=== PATIENT | female | born 1985 | race American Indian/Alaskan Native ===

== ENCOUNTER 2019-01-08 12:10 | Emergency (ER) | payer OTHER ==
[2019-01-08 13:22] VITALS: BP 112/72
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
== END 2019-01-08 15:04 | disposition home or self-care (01) ==
LOC: ED 12:10
DX: M62.838 Other muscle spasm (principal); M25.512 Pain in left shoulder; V89.2XXA Person injured in unspecified motor-vehicle accident, traffic, initial encounter; Y93.89 Activity, other specified; Y92.89 Other specified places as the place of occurrence of the external cause; Y99.8 Other external cause status
CPT/HCPCS: 99283

== ENCOUNTER 2019-02-25 17:28 | Emergency (ER) | payer OTHER ==
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
[2019-02-25 20:48] VITALS: BP 117/67
== END 2019-02-25 20:48 | disposition home or self-care (01) ==
LOC: ED 17:28
DX: S29.012A Strain of muscle and tendon of back wall of thorax, initial encounter (principal); S13.4XXA Sprain of ligaments of cervical spine, initial encounter; Z79.899 Other long term (current) drug therapy; V89.2XXA Person injured in unspecified motor-vehicle accident, traffic, initial encounter; Y93.89 Activity, other specified; Y92.488 Other paved roadways as the place of occurrence of the external cause; Y99.8 Other external cause status
CPT/HCPCS: 72040; 72072; 99283

== ENCOUNTER 2020-05-01 01:55 | Emergency (ER) | payer SELFPAY ==
[2020-05-01 02:14] VITALS: BP 143/99
[2020-05-01 03:28] LABS: HCG Qualitative,Urine Negative (Negative)
[2020-05-01 03:36] LABS: Amphetamine Screen,Urine PRESUMPTIVE NEGATIVE; Benzodiazepines Screen,Urine PRESUMPTIVE NEGATIVE; Cannabinoid Screen,Urine PRESUMPTIVE POSITIVE; Cocaine Screen,Urine PRESUMPTIVE NEGATIVE; Methadone Screen,Urine PRESUMPTIVE NEGATIVE; Opiate Screen,Urine PRESUMPTIVE NEGATIVE
--- NOTE | 2020-05-01 03:54 | Emergency Department Report ---
<ZABRINA ESPINO - Last Filed: 05/01/20 03:50> ED General Adult HPI - General Chief complaint: Overdose Stated complaint: ATE EDIBLE AND FEELS BAD Time Seen by Provider: 05/01/20 02:01 Source: patient Mode of arrival: Stretcher Limitations: No Limitations - History of Present Illness Initial comments: 35-year-old female presents to ED after eating a marijuana edible. Patient states she received a marijuana candy from a friend so that it would help her sleep. Patient now feeling very anxious. Denies ever using any drugs. -: This morning Consistency: constant Improves with: none Worsens with: none Associated Symptoms: denies: chest pain, headaches, nausea/vomiting, shortness of breath Treatments Prior to Arrival: none - Related Data Previous Rx's Medication Instructions Recorded Last Taken Type Cyclobenzaprine HCl [Flexeril 5 MG 5 mg PO TID PRN #12 tab 01/08/19 Unknown Rx TAB] Ibuprofen [Motrin 600 MG tab] 600 mg PO Q8H PRN #20 tablet 01/08/19 Unknown Rx Cyclobenzaprine [Flexeril] 10 mg PO QHS PRN #10 tablet 02/25/19 Unknown Rx Ibuprofen [Motrin] 600 mg PO Q8H PRN #20 tablet 02/25/19 Unknown Rx Allergies Allergy/AdvReac Type Severity Reaction Status Date / Time No Known Allergies Allergy Unverified 01/08/19 12:12 ED Review of Systems Comment: All other systems reviewed and negative Psychiatric: anxiety ED Past Medical Hx - Past Medical History Previous Medical History?: No - Surgical History Past Surgical History?: No - Social History Smoking Status: Never Smoker Substance Use Type: None - Medications Home Medications: Home Medications Medication Instructions Recorded Confirmed Last Taken Type Cyclobenzaprine HCl [Flexeril 5 MG 5 mg PO TID PRN #12 tab 01/08/19 Unknown Rx TAB] Ibuprofen [Motrin 600 MG tab] 600 mg PO Q8H PRN #20 tablet 01/08/19 Unknown Rx Cyclobenzaprine [Flexeril] 10 mg PO QHS PRN #10 tablet 02/25/19 Unknown Rx Ibuprofen [Motrin] 600 mg PO Q8H PRN #20 tablet 02/25/19 Unknown Rx ED Physical Exam - General Limitations: No Limitations General appearance: alert, in no apparent distress, appears intoxicated - Head Head exam: Present: atraumatic, normocephalic - Eye Eye exam: Present: normal appearance - ENT ENT exam: Present: mucous membranes moist - Neck Neck exam: Present: normal inspection - Respiratory Respiratory exam: Present: normal lung sounds bilaterally. Absent: respiratory distress - Cardiovascular Cardiovascular Exam: Present: normal rhythm, tachycardia - GI/Abdominal GI/Abdominal exam: Present: soft. Absent: distended, tenderness - Extremities Exam Extremities exam: Present: normal inspection - Neurological Exam Neurological exam: Present: alert, oriented X3 - Psychiatric Psychiatric exam: Present: normal affect, normal mood - Skin Skin exam: Present: warm, dry, intact, normal color ED Medical Decision Making - Medical Decision Making Patient ambulated to bathroom and back without difficulty. Patient much improved compared to initial presentation. Will discharge at this time. Drug screen is positive for marijuana only. - Differential Diagnosis Marijuana intoxication ED Disposition Clinical Impression: Marijuana intoxication Disposition: DC-01 TO HOME OR SELFCARE Is pt being admited?: No Condition: Stable Instructions: Cannabis Abuse (ED) Referrals: PRIMARY CARE, [Primary Care Provider] - 3-[address] [facility] [Provider Group] - 3-5 Days <NITESH SCHULTZ - Last Filed: 05/01/20 15:06> ED Review of Systems ROS: Stated complaint: ATE EDIBLE AND FEELS BAD Other details as noted in HPI ED Course Vital Signs 05/01/20 02:08 Temperature 98 F Pulse Rate 115 H Respiratory 16 Rate Blood Pressure 143/99 O2 Sat by Pulse 99 Oximetry - Reevaluation(s) Reevaluation #1: 05/01/20 07:51 Nursing team has brought it to my attention that they do not feel comfortable discharging the patient, as they feel like her decision-making ability is impaired. I agree with this. The patient is awake, moving 4 extremities and protecting her airway. She is somewhat anxious, without evidence of blunt head trauma, and appears to be intoxicated. This is likely secondary to cannabis intoxication. Nursing team is instructed to place the patient on hold pending clinical sobriety, or until such time as the patient is able to procure a sober adults to come by and pick her up. 05/01/20 15:05 Patient sobered up while here in the emergency room, exhibited decision-making capacity, and walks with a steady gait, and was thus discharged as per initial plan. Critical care attestation.: If time is entered above; I have spent that time in minutes in the direct care of this critically ill patient, excluding procedure time. ED Disposition Is pt being admited?: No Does the pt Need Aspirin: No
== END 2020-05-01 10:20 | disposition home or self-care (01) ==
LOC: ED 01:55
DX: F12.929 Cannabis use, unspecified with intoxication, unspecified (principal); Z79.899 Other long term (current) drug therapy
CPT/HCPCS: 80307; 81025